=== PATIENT | female | born 1965 | race Caucasian/White ===

== ENCOUNTER → 2021-12-07 11:10 | Outpatient (CLI) | payer MEDICAID, SELFPAY ==
--- NOTE | 2021-12-07 11:23 | RAD_ITS ---
STUDY: X-RAY - RIGHT HAND REASON FOR EXAM: Female, 56 years old. Dislocated first MP joint. TECHNIQUE: 4 view(s) of the hand. COMPARISON: None. FINDINGS: Osteopenia. Diffuse mild osteoarthritic changes. No dislocation. No fracture. The soft tissue structures are unremarkable. RAD/Hand Min 3 Views IMPRESSION: Osteopenia with osteoarthritic changes. No dislocation or acute finding. Electronically Signed: Pepe Daniels MD at 12:39 EDT ,
== END ==
DX: S63.114A Dislocation of metacarpophalangeal joint of right thumb, initial encounter (principal)
CPT/HCPCS: 73130